=== PATIENT | male | born 1955 | race Caucasian/White ===

== ENCOUNTER 2017-09-01 17:14 | Inpatient (IN) | END 2017-09-05 16:19 | disposition home or self-care (01) | DRG 65 ==

== ENCOUNTER 2017-09-10 14:20 | Emergency (ER) | END 2017-09-10 17:56 | disposition left against medical advice (07) ==

== ENCOUNTER 2017-09-14 00:43 | Emergency (ER) | END 2017-09-16 15:06 ==

== ENCOUNTER 2018-03-21 03:43 | Observation (INO) | END 2018-03-23 17:19 | disposition home or self-care (01) ==

== ENCOUNTER 2018-05-06 18:03 | Emergency (ER) | payer OTHER ==
[~2018-05-06] VITALS: Ht 165.1 cm; Wt 70.0 kg
[~2018-05-06 18:03] MED LIST: ARIP5TAB14 PO; ATEN50TA PO; ATOR40TA68 PO; BACL10TA PO; CLOP75TA27 PO; DOCU-144 PO; DULO60CA59 PO; FOLI-49 PO; GABA100C14 PO; HYDR25TA6 PO; IPRA3AMP29 INHALATION; NIT1OI2 TD; PANT40TA4 PO; PHEN300C2 PO; PHEN30TA24 PO; QUET25TA PO; THIA100T56 PO
[2018-05-06 20:29] VITALS: Ht 165.1 cm; Wt 70.0 kg
--- NOTE | 2018-05-07 01:28 | ERD ---
ER Documentation Chief Complaint Chief Complaint c/o chest pain radiates to left shoulder, and neck. hx 3 stents HPI This is a very pleasant 52-year-old male comes in with minor chest pain rating to his left shoulder and neck. Patient history of 3 stents in the past. Has had multiple workups. Recent workup in February which was normal. Denies any fevers chills nausea vomiting. Pain is mild to moderate intensity no exacerbati ng alleviating factors. ROS All systems reviewed and are negative except as per history of present illness. Medications Home Meds Active Scripts Thiamine* (Vitamin B-1*) 100 Mg Tablet, 100 MG PO DAILY for 28 Days, #30 TAB Prov:MILO BARAJAS MD 03/23/18 Pantoprazole* (Pantoprazole*) 40 Mg Tablet.dr, 40 MG PO DAILY@06 for 28 Days, #20 Prov:MILO BARAJAS MD 03/23/18 Nitroglycerin* (Nitro-Bid* Oint (Pkt)) 1 Inch Oint, 1 INCH TD Q8 for 14 Days, #30 Prov:MILO BARAJAS MD 03/23/18 Atorvastatin* (Atorvastatin*) 40 Mg Tablet, 40 MG PO HS for 30 Days, #30 TAB Prov:HOLA CARNES MD 08/31/17 Reported Medications Atorvastatin* (Atorvastatin*) 40 Mg Tablet, 40 MG PO QHS, #30 TAB 09/16/17 Phenobarbital* (Phenobarbital*) 30 Mg Tablet, 60 MG PO BID, TAB 09/16/17 Clopidogrel Bisulfate (Clopidogrel) 75 Mg Tablet, 75 MG PO DAILY, #30 TAB 09/16/17 Phenytoin* Sodium Extended (Dilantin*) 300 Mg Capsule, 300 MG PO HS, CAP 09/16/17 Quetiapine Fumarate* (Seroquel*) 25 Mg Tablet, 25 MG PO HS, #30 TAB 09/16/17 Ipratropium-Albuterol (Ipratropium-Albuterol) 0.5-3 Mg/3 Ml Ampul.neb, 3 ML INHALATION Q4 PRN for WHEEZING AND SOB, #30 VIAL 08/28/17 Hydrochlorothiazide* (Hydrochlorothiazide*) 25 Mg Tab, 25 MG PO DAILY, #30 TAB 08/28/17 Gabapentin* (Gabapentin*) 100 Mg Capsule, 100 MG PO TID, #90 CAP 08/28/17 Folic Acid* (Folic Acid*) 1 Mg Tablet, 1 MG PO DAILY, TAB 08/28/17 Duloxetine Hcl* (Duloxetine Hcl*) 60 Mg Capsule.dr, 60 MG PO DAILY, #30 CAP 08/28/17 Docusate Sodium* (Colace*) 100 Mg Capsule, 100 MG PO BID, #60 CAP 08/28/17 Baclofen* (Baclofen*) 10 Mg Tablet, 10 MG PO TID, TAB 08/28/17 Atenolol* (Atenolol*) 50 Mg Tablet, 50 MG PO DAILY, #30 TAB HOLD IF SBP<110 OR HR<60 08/28/17 Aripiprazole* (Abilify*) 5 Mg Tab, 5 MG PO DAILY, #30 TAB 08/28/17 Allergies Allergies: Coded Allergies: Penicillins (Unverified Allergy, Unknown, 03/21/18) aspirin (Unverified Allergy, Unknown, 03/21/18) PMhx/Soc History of Surgery: Yes (LEFT LEG CLOT REMOVAL, TONSILLECTOMY, APPENDECTOMY) Anesthesia Reaction: No Hx Neurological Disorder: Yes (SEIZURES) Hx Respiratory Disorders: Yes (COPD, ASTHMA, CPAP AT HOME) Hx Cardiac Disorders: Yes (HTN, MT, CARDIOMEGALY, LEFT LEG BLOOD CLOT, STENTS) Hx Psychiatric Problems: Yes (ANXIETY, DEPRESSION, BIPOLAR) Hx Miscellaneous Medical Probl: Yes (CANCER IN "VOICEBOX") Hx Alcohol Use: Yes (3-4 TIMES A MONTH) Hx Substance Use: No Hx Tobacco Use: Yes Physical Exam Vitals Vital Signs Date Temp Pulse Resp B/P (MAP) Pulse Ox O2 O2 Flow FiO2 Time Delivery Rate 05/06/18 97.0 89 20 128/80 96 20:29 (96) Physical Exam Const: No acute distress Head: Atraumatic Eyes: Normal Conjunctiva ENT: Normal External Ears, Nose and Mouth. Neck: Full range of motion. No meningismus. Resp: Clear to auscultation bilaterally Cardio: Regular rate and rhythm, no murmurs Abd: Soft, non tender, non distended. Normal bowel sounds Skin: No petechiae or rashes Back: No midline or flank tenderness Ext: No cyanosis, or edema Neur: Awake and alert Psych: Normal Mood and Affect Result Diagram: 05/07/18505/07/185 Results 24 hrs Laboratory Tests Test 05/07/18 00:06 White Blood Count 4.8 10^3/ul Red Blood Count 4.19 10^6/ul Hemoglobin 12.0 g/dl Hematocrit 36.8 % Mean Corpuscular Volume 87.8 fl Mean Corpuscular Hemoglobin 28.6 pg Mean Corpuscular Hemoglobin Concent 32.6 g/dl Red Cell Distribution Width 15.0 % Platelet Count 319 10^3/UL Mean Platelet Volume 9.3 fl Immature Granulocytes % 0.400 % Neutrophils % 51.3 % Lymphocytes % 34.7 % Monocytes % 9.3 % Eosinophils % 3.3 % Basophils % 1.0 % Nucleated Red Blood Cells % 0.0 /100WBC Immature Granulocytes # 0.020 10^3/ul Neutrophils # 2.5 10^3/ul Lymphocytes # 1.7 10^3/ul Monocytes # 0.5 10^3/ul Eosinophils # 0.2 10^3/ul Basophils # 0.1 10^3/ul Nucleated Red Blood Cells # 0.0 10^3/ul Sodium Level 142 mmol/L Potassium Level 3.8 mmol/L Chloride Level 106 mmol/L Carbon Dioxide Level 27 mmol/L Anion Gap 9 Blood Urea Nitrogen 11 mg/dl Creatinine 0.46 mg/dl Est Glomerular Filtrat Rate mL/min > 60 mL/min Glucose Level 91 mg/dl Calcium Level 9.0 mg/dl Total Bilirubin 0.1 mg/dl Direct Bilirubin 0.00 mg/dl Indirect Bilirubin 0.1 mg/dl Aspartate Amino Transf (AST/SGOT) 19 IU/L Alanine Aminotransferase (ALT/SGPT) 19 IU/L Alkaline Phosphatase 84 IU/L Troponin I < 0.012 ng/ml B-Type Natriuretic Peptide 39 PG/ML Total Protein 7.4 g/dl Albumin 3.9 g/dl Globulin 3.50 g/dl Albumin/Globulin Ratio 1.11 Procedures/MDM EKG: Rate/Rhythm: [Normal Sinus Rhythm] QRS, ST, T-waves: [No changes consistent w/ acute ischemia] Impression: [No evidence of ischemia or arrhythmia] Chest X-ray 1V Interpreted by me: Soft Tissue: No acute abnormalities Bones: No acute abnormalities Mediastinum/Cardiac Silhouette/Lungs: [No acute abnormalities] Patient's thoracic symptoms have stabilized while in the department and are stable for outpatient follow up. Exam and work up not consistent w/ ischemia, arrhythmia, PE or dissection. Departure Diagnosis: Primary Impression: Chest pain Chest pain type: unspecified Qualified Codes: R07.9 - Chest pain, uns pecified Condition: Stable Patient Instructions: Chest Pain, Uncertain Cause ZAID PÉREZ May 07, 2018 01:28
[2018-05-07 02:30] VITALS: BP 150/84; PULSE 68; RESP 22
== END 2018-05-07 03:19 | disposition home or self-care (01) ==
LOC: E/R 18:03
DX: R07.9 Chest pain, unspecified (principal); I25.2 Old myocardial infarction; I10 Essential (primary) hypertension; J44.9 Chronic obstructive pulmonary disease, unspecified; Z79.01 Long term (current) use of anticoagulants; Z85.21 Personal history of malignant neoplasm of larynx; Z87.891 Personal history of nicotine dependence; Z98.61 Coronary angioplasty status
CPT/HCPCS: 36415; 71045; 80053; 83880; 84484; 85025; 93005

== ENCOUNTER 2018-07-21 23:54 | Emergency (ER) | payer SELFPAY ==
[~2018-07-21] VITALS: Ht 162.6 cm; Wt 69.9 kg
[2018-07-22 00:02] VITALS: BP 105/62; PULSE 105; RESP 18; Ht 162.6 cm; Wt 69.9 kg
== END 2018-07-22 03:52 | disposition left against medical advice (07) ==
LOC: E/R 23:54
DX: Z53.21 Procedure and treatment not carried out due to patient leaving prior to being seen by health care provider (principal)
CPT/HCPCS: 93005

== ENCOUNTER 2018-11-18 02:44 | Emergency (ER) | payer OTHER ==
[~2018-11-18] VITALS: Ht 162.6 cm; Wt 60.0 kg
[2018-11-18 02:50] VITALS: Ht 162.6 cm; Wt 60.0 kg
[2018-11-18] MEDS ORDERED: KETOROLAC 15 MG INJ IV STA (02:52)
--- NOTE | 2018-11-18 02:52 | ERD ---
ER Documentation Chief Complaint Chief Complaint HPI This is a 63-year-old man complaining of sharp nonexertional nonradiating chest pain x1 day, he later stated he had a mild dry cough as well but initially denied any other symptoms. Patient denies shortness of breath, no fevers or chills, no headache or blurry vision, no vomiting or diarrhea. Patient states he has had this chest pain multiple times in the past ROS All systems reviewed and are negative except as per history of present illness. Medications Home Meds Active Scripts Naproxen* (Naprosyn*) 500 Mg Tablet, 500 MG PO BID PRN for PAIN AND/OR INFLAMMATION, #30 TAB Prov:GAVINO ORTIZ MD 11/18/18 Azithromycin* (Zithromax*) 500 Mg Tablet, 500 MG PO DAILY for 5 Days, TAB Prov:GAVINO ORTIZ MD 11/18/18 Thiamine* (Vitamin B-1*) 100 Mg Tablet, 100 MG PO DAILY for 28 Days, #30 TAB Prov:MILO BARAJAS MD 03/23/18 Pantoprazole* (Pantoprazole*) 40 Mg Tablet.dr, 40 MG PO DAILY@06 for 28 Days, #20 Prov:MILO BARAJAS MD 03/23/18 Nitroglycerin* (Nitro-Bid* Oint (Pkt)) 1 Inch Oint, 1 INCH TD Q8 for 14 Days, #30 Prov:MILO BARAJAS MD 03/23/18 Atorvastatin* (Atorvastatin*) 40 Mg Tablet, 40 MG PO HS for 30 Days, #30 TAB Prov:HOLA CARNES MD 08/31/17 Reported Medications Zolpidem Tartrate* (Zolpidem Tartrate*) 5 Mg Tablet, 5 MG PO QHS PRN for INSOMNIA, #30 TAB 11/18/18 Ezetimibe* (Zetia*) 10 Mg Tablet, 10 MG PO DAILY for hyperlipidemia, TAB 11/18/18 Tramadol Hcl* (Ultram*) 50 Mg Tablet, 50 MG PO Q6H PRN for PAIN, TAB 11/18/18 Phenobarbital* (Phenobarbital*) 15 Mg Tablet, 30 MG PO TID for seizures, TAB 11/18/18 Metoprolol Tartrate* (Lopressor*) 25 Mg Tab, 25 MG PO BID, #60 TAB 11/18/18 Lactulose* (Lactulose*) 20 Gm/30 Ml Solution, 20 GM PO BID, ML 11/18/18 Lactulose* (Lactulose*) 10 Gm/15 Ml Solution, 10 GM PO Q6, ML 11/18/18 Isosorbide Dinitrate* (Isosorbide Dinitrate*) 10 Mg Tablet, 10 MG PO TID, TAB 11/18/18 Insulin Lispro (Humalog) 100 Unit/1 Ml Cartridge, 0 SQ DAILY, EA SS IF 60-149=0 UNIT <60; HYPOGYCEMIC PROTOCOL AND INFORM MD; 150-199=1UNIT; 200-249=2UNIT;250-299=3UNIT; 300-349=4UNIT; 350-399=5UNIT; 400+ = 6 UNITS; 400=6 UNITS AND INFORM MD.,subcutaneously before meals and at bedtime for hyperglycemia 11/18/18 Diphenhydramine Hcl* (Diphenhydramine Hcl*) 25 Mg Capsule, 25 MG PO Q6 PRN for ITCHING, CAP 11/18/18 Mineral Oil* (Fleet* Mineral Oil Enema) 133 Ml Oil, 133 ML [place] NEEDED PRN for CONSTIPATION, ENEMA 11/18/18 Bisacodyl (Dulcolax) 10 Mg Supp.rect, 10 MG RC, SUPP.RECT 11/18/18 Magnesium Hydroxide* (Milk Of Magnesia*) 400 Mg/5 Ml Oral.susp, 30 ML PO Q12H for CONSTIPATION, ML 11/18/18 Lorazepam* (Lorazepam*) 1 Mg Tablet, 1 MG PO BID PRN for ANXIETY, #30 TAB 11/18/18 Atorvastatin* (Atorvastatin*) 40 Mg Tablet, 40 MG PO QHS, #30 TAB 09/16/17 Phenobarbital* (Phenobarbital*) 30 Mg Tablet, 60 MG PO BID, TAB 09/16/17 Clopidogrel Bisulfate (Clopidogrel) 75 Mg Tablet, 75 MG PO DAILY, #30 TAB 09/16/17 Phenytoin* Sodium Extended (Dilantin*) 300 Mg Capsule, 300 MG PO HS, CAP 09/16/17 Quetiapine Fumarate* (Seroquel*) 25 Mg Tablet, 25 MG PO HS, #30 TAB 09/16/17 Ipratropium-Albuterol (Ipratropium-Albuterol) 0.5-3 Mg/3 Ml Ampul.neb, 3 ML INHALATION Q4 PRN for WHEEZING AND SOB, #30 VIAL 08/28/17 Hydrochlorothiazide* (Hydrochlorothiazide*) 25 Mg Tab, 25 MG PO DAILY, #30 TAB 08/28/17 Gabapentin* (Gabapentin*) 100 Mg Capsule, 100 MG PO TID, #90 CAP 08/28/17 Folic Acid* (Folic Acid*) 1 Mg Tablet, 1 MG PO DAILY, TAB 08/28/17 Duloxetine Hcl* (Duloxetine Hcl*) 60 Mg Capsule.dr, 60 MG PO DAILY, #30 CAP 08/28/17 Docusate Sodium* (Colace*) 100 Mg Capsule, 100 MG PO BID, #60 CAP 08/28/17 Baclofen* (Baclofen*) 10 Mg Tablet, 10 MG PO TID, TAB 08/28/17 Atenolol* (Atenolol*) 50 Mg Tablet, 50 MG PO DAILY, #30 TAB HOLD IF SBP<110 OR HR<60 08/28/17 Aripiprazole* (Abilify*) 5 Mg Tab, 5 MG PO DAILY, #30 TAB 08/28/17 Allergies Allergies: Coded Allergies: Penicillins (Unverified Allergy, Unknown, 05/07/18) aspirin (Unverified Allergy, Unknown, 05/07/18) PMhx/Soc History of depression and drug abuse, CAD status post SD x2 in the past with stents, chronic pain syndrome, history of appendectomy, dyslipidemia, COPD, hyp ertension, LVEF of 55%, anemia History of Surgery: Yes (LEFT LEG CLOT REMOVAL, TONSILLECTOMY, APPENDECTOMY) Anesthesia Reaction: No Hx Neurological Disorder: Yes (SEIZURES) Hx Respiratory Disorders: Yes (COPD, ASTHMA, CPAP AT HOME) Hx Cardiac Disorders: Yes (HTN, SD, CARDIOMEGALY, LEFT LEG BLOOD CLOT, STENTS) Hx Psychiatric Problems: Yes (ANXIETY, DEPRESSION, BIPOLAR) Hx Miscellaneous Medical Probl: Yes (CANCER IN "VOICEBOX") Hx Alcohol Use: Yes (3-4 TIMES A MONTH) Hx Substance Use: No Hx Tobacco Use: Yes FmHx Family History: No diabetes Physical Exam Vitals Vital Signs Date Temp Pulse Resp B/P (MAP) Pulse Ox O2 O2 Flow FiO2 Time Delivery Rate 11/18/18 98.5 87 21 108/87 96 Room Air 04:41 (94) 7/23/19 99 17 120/85 96 Room Air 03:06 (97) 11/18/18 98.6 97 19 120/85 100 02:50 (97) 11/18/18 98.6 99 19 126/65 100 Room Air 02:50 (85) Per nurse's records Physical Exam GENERAL: Well-developed, well-nourished, well-hydrated, in no apparent distress, looks nontoxic in appearance CARDIAC: Regular rate and rhythm, no murmurs rubs or gallops LUNGS: Clear bilaterally no wheezing crackles or stridor ABDOMEN: Soft nontender, no guarding, no rigidity, no rebound, no psoas sign no obturator sign. Normoactive bowel sounds SKIN: Warm and dry to touch, no abrasions, contusions, or hematomas, no lacerations, no ecchymosis, no target lesions, and without ulcers EXTREMITIES: No clubbing cyanosis or edema, calves are bilaterally symmetrical, no Homans sign, no popliteal cord sign. Distal pulses equal and bilateral PSYCH: Normal affect without agitation or irritability Result Diagram: 11/18/18 0350 11/18/18 0350 Results 24 hrs Laboratory Tests Test 11/18/18 03:50 White Blood Count 7.4 10^3/ul Red Blood Count 5.29 10^6/ul Hemoglobin 15.5 g/dl Hematocrit 47.1 % Mean Corpuscular Volume 89.0 fl Mean Corpuscular Hemoglobin 29.3 pg Mean Corpuscular Hemoglobin Concent 32.9 g/dl Red Cell Distribution Width 16.3 % Platelet Count 296 10^3/UL Mean Platelet Volume 9.4 fl Immature Granulocytes % 0.100 % Neutrophils % 57.8 % Lymphocytes % 29.5 % Monocytes % 7.7 % Eosinophils % 3.9 % Basophils % 1.0 % Nucleated Red Blood Cells % 0.0 /100WBC Immature Granulocytes # 0.010 10^3/ul Neutrophils # 4.3 10^3/ul Lymphocytes # 2.2 10^3/ul Monocytes # 0.6 10^3/ul Eosinophils # 0.3 10^3/ul Basophils # 0.1 10^3/ul Nucleated Red Blood Cells # 0.0 10^3/ul Sodium Level 139 mmol/L Potassium Level 4.4 mmol/L Chloride Level 101 mmol/L Carbon Dioxide Level 29 mmol/L Anion Gap 9 Blood Urea Nitrogen 20 mg/dl Creatinine 0.60 mg/dl Est Glomerular Filtrat Rate mL/min > 60 mL/min Glucose Level 103 mg/dl Calcium Level 9.8 mg/dl Total Bilirubin 0.3 mg/dl Direct Bilirubin 0.00 mg/dl Indirect Bilirubin 0.3 mg/dl Aspartate Amino Transf (AST/SGOT) 26 IU/L Alanine Aminotransferase (ALT/SGPT) 25 IU/L Alkaline Phosphatase 110 IU/L Troponin I < 0.012 ng/ml Total Protein 8.2 g/dl Albumin 4.6 g/dl Globulin 3.60 g/dl Albumin/Globulin Ratio 1.27 Lipase 43 U/L Current Medications Medications Dose Sig/Williams Start Time Status Last (Trade) Ordered Route PRN Stop Time Admin Dose Reason Admin Ketorolac 15 mg ONCE STAT 11/18/18 DC 11/18/18 Tromethamine IV 02:52 03:56 (Toradol) 11/18/18 03:01 Procedures/MDM IV line was established patient was placed on registered nurse post partum rhythm strip revealed a narrow complex tachycardia at 100 bpm with upright P and T waves. Patient was afebrile I administered Toradol 15 mg IV x1. Chest X-ray 1V Interpreted by me: Soft Tissue: No acute abnormalities Bones: No acute abnormalities Mediastinum/Cardiac Silhouette/Lungs: No acute abnormalities EKG performed, read by me revealed a normal sinus rhythm at 99 bpm, normal axis, right ventricular conduction delay QRS duration 102 ms, no concerning ST elevations or depressions noted CBC and electrolytes are normal, liver function tests were normal, troponin was negative. The patient's history, physical exam and clinical presentation is concerning for possible cardiogenic etiology and acute coronary syndrome. Based on the patient's clinical exam and history and risk factors, I have a much lower clinical concern for pulmonary embolism, acute aortic dissection, pneumothorax, pneumonia, cardiac tamponade HEART Score: 4 MACE Rate: 12-17% Shared Decision Making: We had a conversation regarding risk stratification, MACE rate, and the risks, benefits, alternatives of disposition planning options. Disposition planning: Patient preferred discharge and follow-up with PMD. He did not want to stay in the emergency department did not provide a reason as to why but he stated he felt comfortable and his chest pain completely resolved after initial therapy given at arrival. He stated he has had this chest pain multiple times in the past and he does not think it is related to any cardiac etiology and therefore wants to go back to the long-term facility and agreed to follow-up with his PMD. Differential diagnoses considered, included but not limited to acute coronary syndrome, pulmonary embolism, aortic dissection, abdominal aortic aneurysm, sepsis, stroke, meningitis, encephalitis, pneumonia, appendicitis, cholecys titis, bowel obstruction, pyelonephritis, nephrolithiasis, cystitis, as well as metabolic, hematologic, and electrolyte abnormalities. As well as abscess, cellulitis, fractures, and dislocations. Patient feels much better at this time, and vital signs are normal, symptoms have improved. I did give strict instructions to return to the ED if symptoms continue or worsen, patient will otherwise follow-up with primary care physician. Patient understood instructions and agreed to plan. Disclaimer: Inadvertent spelling and grammatical errors are likely due to EHR/dictation software use and do not reflect on the overall quality of patient care. Also, please note that the electronic time recorded on this note does not necessarily reflect the actual time of the patient encounter. Departure Diagnosis: Primary Impression: Chest pain Chest pain type: unspecified Qualified Codes: R07.9 - Chest pain, unspecified Condition: GAVINO Cervantes MD Nov 18, 2018 02:52
[2018-11-18] MEDS ORDERED: MAGN400O19 PO (04:40)
[2018-11-18] MEDS ORDERED: BISA10SU55 RC (04:40)
[2018-11-18] MEDS ORDERED: LORA1TAB PO (04:40)
[2018-11-18] MEDS ORDERED: DIPH25CA6 PO (04:53)
[2018-11-18] MEDS ORDERED: MINE133E23 PR (04:53)
[2018-11-18] MEDS ORDERED: INSU100C SQ (04:53)
[2018-11-18] MEDS ORDERED: LACT20SO2 PO (05:09)
[2018-11-18] MEDS ORDERED: ISOS10TA2 PO (05:09)
[2018-11-18] MEDS ORDERED: LACT10SO5 PO (05:09)
[2018-11-18] MEDS ORDERED: PHEN15TA PO (05:09)
[2018-11-18] MEDS ORDERED: METO-448 PO (05:09)
[2018-11-18] MEDS ORDERED: TRAM50TA PO (05:12)
[2018-11-18] MEDS ORDERED: EZET10TA31 PO (05:12)
[2018-11-18] MEDS ORDERED: ZOLP5TAB7 PO (05:13)
[2018-11-18] MEDS ORDERED: AZIT500T3 PO (05:28)
[2018-11-18] MEDS ORDERED: NAPR-985 PO (05:28)
[2018-11-18 07:23] VITALS: BP 130/90; PULSE 80; RESP 17
== END 2018-11-18 07:54 | disposition home or self-care (01) ==
LOC: E/R 02:44
DX: R07.9 Chest pain, unspecified (principal); I25.2 Old myocardial infarction; I25.10 Atherosclerotic heart disease of native coronary artery without angina pectoris; J44.9 Chronic obstructive pulmonary disease, unspecified; I10 Essential (primary) hypertension; Z79.4 Long term (current) use of insulin; Z85.21 Personal history of malignant neoplasm of larynx; Z87.891 Personal history of nicotine dependence; Z98.61 Coronary angioplasty status
CPT/HCPCS: 36415; 71045; 80053; 83690; 84484; 85025; 93005; 96374; J1885; Z7502

== ENCOUNTER 2018-12-03 13:24 | Emergency (ER) | payer OTHER ==
[~2018-12-03] VITALS: Ht 167.6 cm; Wt 75.0 kg
[~2018-12-03 13:24] MED LIST changes: +AZIT500T3 PO; +BISA10SU55 RC; +DIPH25CA6 PO; +EZET10TA31 PO; +INSU100C SQ; +ISOS10TA2 PO; +LACT10SO5 PO; +LACT20SO2 PO; +LORA1TAB PO; +MAGN400O19 PO; +METO-448 PO; +MINE133E23 PR; +NAPR-985 PO; +PHEN15TA PO; +TRAM50TA PO; +ZOLP5TAB7 PO
[2018-12-03] MEDS ORDERED: SOD CHLORIDE 0.9% 1,000 ML IV STA (13:47)
[2018-12-03 13:52] VITALS: BP 128/90; PULSE 94; RESP 20; Ht 167.6 cm; Wt 75.0 kg
--- NOTE | 2018-12-03 14:02 | ERD ---
ER Documentation Chief Complaint Chief Complaint Pt BIB [facility] with c/o CP X 3 days, pt received nitro X 3 . HPI 63-year-old male brought in by ambulance from a store complaining of chest pain for the past 3 days. 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 He received 3 nitro prior to arrival with improvement of his symptoms. Denies any shortness of breath, diaphoresis, nausea or vomiting. ROS All systems reviewed and are negative except as per history of present illness. Medications Home Meds Active Scripts Naproxen* (Naprosyn*) 500 Mg Tablet, 500 MG PO BID PRN for PAIN AND/OR INFLAMMATION, #30 TAB Prov:GAVINO ORTIZ MD 11/18/18 Azithromycin* (Zithromax*) 500 Mg Tablet, 500 MG PO DAILY for 5 Days, TAB Prov:GAVINO ORTIZ MD 11/18/18 Thiamine* (Vitamin B-1*) 100 Mg Tablet, 100 MG PO DAILY for 28 Days, #30 TAB Prov:MILO BARAJAS MD 03/23/18 Pantoprazole* (Pantoprazole*) 40 Mg Tablet., 40 MG PO DAILY@06 for 28 Days, #20 Prov:MILO BARAJAS MD 03/23/18 Nitroglycerin* (Nitro-Bid* Oint (Pkt)) 1 Inch Oint, 1 INCH TD Q8 for 14 Days, #30 Prov:MILO BARAJAS MD 03/23/18 Atorvastatin* (Atorvastatin*) 40 Mg Tablet, 40 MG PO HS for 30 Days, #30 TAB Prov:HOLA CARNES MD 08/31/17 Reported Medications Zolpidem Tartrate* (Zolpidem Tartrate*) 5 Mg Tablet, 5 MG PO QHS PRN for INSOMNIA, #30 TAB 11/18/18 Ezetimibe* (Zetia*) 10 Mg Tablet, 10 MG PO DAILY for hyperlipidemia, TAB 11/18/18 Tramadol Hcl* (Ultram*) 50 Mg Tablet, 50 MG PO Q6H PRN for PAIN, TAB 11/18/18 Phenobarbital* (Phenobarbital*) 15 Mg Tablet, 30 MG PO TID for seizures, TAB 11/18/18 Metoprolol Tartrate* (Lopressor*) 25 Mg Tab, 25 MG PO BID, #60 TAB 11/18/18 Lactulose* (Lactulose*) 20 Gm/30 Ml Solution, 20 GM PO BID, ML 11/18/18 Lactulose* (Lactulose*) 10 Gm/15 Ml Solution, 10 GM PO Q6, ML 11/18/18 Isosorbide Dinitrate* (Isosorbide Dinitrate*) 10 Mg Tablet, 10 MG PO TID, TAB 11/18/18 Insulin Lispro (Humalog) 100 Unit/1 Ml Cartridge, 0 SQ DAILY, EA SS IF 60-149=0 UNIT <60; HYPOGYCEMIC PROTOCOL AND INFORM MD; 150-199=1UNIT; 200-249=2UNIT;250-299=3UNIT; 300-349=4UNIT; 350-399=5UNIT; 400+ = 6 UNITS; 400=6 UNITS AND INFORM MD.,subcutaneously before meals and at bedtime for hyperglycemia 11/18/18 Diphenhydramine Hcl* (Diphenhydramine Hcl*) 25 Mg Capsule, 25 MG PO Q6 PRN for I TCHING, CAP 11/18/18 Mineral Oil* (Fleet* Mineral Oil Enema) 133 Ml Oil, 133 ML [place] NEEDED PRN for CONSTIPATION, ENEMA 11/18/18 Bisacodyl (Dulcolax) 10 Mg Supp.rect, 10 MG RC, SUPP.RECT 11/18/18 Magnesium Hydroxide* (Milk Of Magnesia*) 400 Mg/5 Ml Oral.susp, 30 ML PO Q12H for CONSTIPATION, ML 11/18/18 Lorazepam* (Lorazepam*) 1 Mg Tablet, 1 MG PO BID PRN for ANXIETY, #30 TAB 11/18/18 Atorvastatin* (Atorvastatin*) 40 Mg Tablet, 40 MG PO QHS, #30 TAB 09/16/17 Phenobarbital* (Phenobarbital*) 30 Mg Tablet, 60 MG PO BID, TAB 09/16/17 Clopidogrel Bisulfate (Clopidogrel) 75 Mg Tablet, 75 MG PO DAILY, #30 TAB 09/16/17 Phenytoin* Sodium Extended (Dilantin*) 300 Mg Capsule, 300 MG PO HS, CAP 09/16/17 Quetiapine Fumarate* (Seroquel*) 25 Mg Tablet, 25 MG PO HS, #30 TAB 09/16/17 Ipratropium-Albuterol (Ipratropium-Albuterol) 0.5-3 Mg/3 Ml Ampul.neb, 3 ML INHALATION Q4 PRN for WHEEZING AND SOB, #30 VIAL 08/28/17 Hydrochlorothiazide* (Hydrochlorothiazide*) 25 Mg Tab, 25 MG PO DAILY, #30 TAB 08/28/17 Gabapentin* (Gabapentin*) 100 Mg Capsule, 100 MG PO TID, #90 CAP 08/28/17 Folic Acid* (Folic Acid*) 1 Mg Tablet, 1 MG PO DAILY, TAB 08/28/17 Duloxetine Hcl* (Duloxetine Hcl*) 60 Mg Capsule.dr, 60 MG PO DAILY, #30 CAP 08/28/17 Docusate Sodium* (Colace*) 100 Mg Capsule, 100 MG PO BID, #60 CAP 08/28/17 Baclofen* (Baclofen*) 10 Mg Tablet, 10 MG PO TID, TAB 08/28/17 Atenolol* (Atenolol*) 50 Mg Tablet, 50 MG PO DAILY, #30 TAB HOLD IF SBP<110 OR HR<60 08/28/17 Aripiprazole* (Abilify*) 5 Mg Tab, 5 MG PO DAILY, #30 TAB 08/28/17 Allergies Allergies: Coded Allergies: Penicillins (Unverified Allergy, Unknown, 05/07/18) aspirin (Unverified Allergy, Unknown, 05/07/18) PMhx/Soc History of Surgery: Yes (LEFT LEG CLOT REMOVAL, TONSILLECTOMY, APPENDECTOMY) Anesthesia Reaction: No Hx Neurological Disorder: Yes (SEIZURES) Hx Respiratory Disorders: Yes (COPD, ASTHMA, CPAP AT HOME) Hx Cardiac Disorders: Yes (HTN, DE, CARDIOMEGALY, LEFT LEG BLOOD CLOT, STENTS) Hx Psychiatric Problems: Yes (ANXIETY, DEPRESSION, BIPOLAR) 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 Neck: Full range of motion. No meningismus. Resp: Clear to auscultation bilaterally Cardio: Regular rate and rhythm, no murmurs, Abd: Soft, non tender, non distended. Normal bowel sounds Skin: No petechiae or rashes Back: No midline or flank tenderness Ext: No cyanosis, or edema Neur: Awake and alert, somewhat slurred speech, strength and sensations intact in all 4 extremities. Gait not tested as the patient is wheelchair-bound Psych: Normal Mood and Affect Result Diagram: 12/03/18 1354 Results 24 hrs Laboratory Tests Test 12/03/18 13:54 White Blood Count 7.3 10^3/ul Red Blood Count 5.75 10^6/ul Hemoglobin 16.4 g/dl Hematocrit 50.3 % Mean Corpuscular Volume 87.5 fl Mean Corpuscular Hemoglobin 28.5 pg Mean Corpuscular Hemoglobin Concent 32.6 g/dl Red Cell Distribution Width 15.7 % Platelet Count 324 10^3/UL Mean Platelet Volume 9.3 fl Immature Granulocytes % 0.100 % Neutrophils % 68.6 % Lymphocytes % 23.1 % Monocytes % 6.3 % Eosinophils % 1.5 % Basophils % 0.4 % Nucleated Red Blood Cells % 0.0 /100WBC Immature Granulocytes # 0.010 10^3/ul Neutrophils # 5.0 10^3/ul Lymphocytes # 1.7 10^3/ul Monocytes # 0.5 10^3/ul Eosinophils # 0.1 10^3/ul Basophils # 0.0 10^3/ul Nucleated Red Blood Cells # 0.0 10^3/ul Current Medications Medications Dose Sig/Williams Start Time Status Last (Trade) Ordered Route PRN Stop Time Admin Dose Reason Admin Sodium 1,000 ml @ Q1H STAT 12/03/18 DC 12/03/18 Chloride 1,000 mls/hr IV 13:47 12/03/18 13:56 14:32 Procedures/MDM Initial Nursing notes reviewed. Previous Medical Records requested via the Electronic Health Record. EMERGENCY DEPARTMENT COURSE / MEDICAL DECISION MAKING: Patient presented complaining of chest pain. Vitals were unremarkable. Reviewed his record and it seems that the patient frequently visits the ER for chest pain. He became verbally abusive with the nurse and staff. I did order a work-up for ACS on him, however I was told by the nurse that the patient decided to leave AGAINST MEDICAL ADVICE and refused to sign paperwork. He eloped from the ER. Labs had already been sent and so far CBC is unremarkable. Departure Diagnosis: Primary Impression: Chest pain Chest pain type: unspecified Qualified Codes: R07.9 - Chest pain, unspecified Condition: Fair OBI BANEGAS MD Dec 03, 2018 14:02
== END 2018-12-03 14:32 | disposition left against medical advice (07) ==
LOC: E/R 13:24
DX: I10 Essential (primary) hypertension (principal); J44.9 Chronic obstructive pulmonary disease, unspecified; I25.2 Old myocardial infarction; Z79.01 Long term (current) use of anticoagulants; Z79.4 Long term (current) use of insulin; Z85.21 Personal history of malignant neoplasm of larynx; Z87.891 Personal history of nicotine dependence; Z98.61 Coronary angioplasty status
CPT/HCPCS: 80053; 80307; 84484; 85025; J7030; Z7502